=== PATIENT | male | born 1990 | race Caucasian/White ===

== ENCOUNTER 2019-09-30 13:10 | Emergency (ER) | payer BC ==
--- NOTE | 2019-09-30 13:21 | UC ---
Dizzy HPI HPI Summary: 29 yo male presents with dizziness. He tells me that last night he was laying in bed and realized he had to get up to do the laundry before his Zoom date with his girlfriend. He quickly got out of bed from a lying position and immediately felt dizzy described as the "room spinning". He had difficulty doing laundry as he felt everything was moving. He developed nausea and vomiting due to these sensations. Moving makes symptoms worse, but sitting or lying still makes his symptoms better. He went to bed last night and symptoms are mildly improved this morning, but still present. Denies head injury, headache, vision changes, sinus symptoms, ear pain, change in hearing, sore throat, cough, SOB, chest pain, abdominal pain. He has had vertigo in the past, but never this bad or this long. Nothing OTC for symptoms. - History Of Current Complaint Stated Complaint: VERTIGO Time Seen by Provider: 09/30/19 13:20 Hx Obtained From: Patient Onset/Duration: Sudden Onset Timing: Constant Severity Currently: None - Allergies/Home Medications Allergies/Adverse Reactions: Allergies Allergy/AdvReac Type Severity Reaction Status Date / Time No Known Allergies Allergy Verified 09/30/19 13:19 Home Medications: Home Medications Ibuprofen TAB* [Advil TAB*] 200 mg PO Q6H PRN 09/30/19 [History Confirmed ] Meclizine TAB* [Antivert 12.5 TAB*] 25 mg PO TID #21 tab 09/30/19 [Rx] Ondansetron ODT TAB* [Zofran 4 MG Odt TAB*] 4 mg PO Q8H PRN #12 tab.odt [Rx] PMH/Surg Hx/FS Hx/Imm Hx - Additional Past Medical History Additional PMH: None - Surgical History Surgical History: None - Family History Known Family History: Positive: None - Social History Occupation: Employed Full-time Lives: With Family Alcohol Use: Occasionally Substance Use Type: None Smoking Status (MU): Never Smoked Tobacco Review of Systems All Other Systems Reviewed And Are Negative: No Constitutional: Positive: Negative Skin: Positive: Negative Eyes: Positive: Negative ENT: Positive: Negative Neurovascular: Positive: Negative Neurological/Mental Status: Positive: Other - Dizzy Psychological: Positive: Negative Physical Exam - Summary Physical Exam Summary: GENERAL: NAD. WDWN. No pain distress. SKIN: No rashes, sores, ulcers, masses, lesions. HEENT: Head: AT/NC. Eyes: PERRLA. EOM intact. Conjunctiva clear without inflammation or discharge. Ears: Hearing grossly normal. TMs intact, no bulging, erythema, or edema. Nose: Nasal mucosa pink and moist. NTTP maxillary and frontal sinus. Throat: Posterior oropharynx without exudates, erythema, or tonsillar enlargement. Uvula midline. NECK: Supple. Nontender. FROM CHEST: CTAB. No r/r/w. No accessory muscle use. Breathing comfortably and in no distress. CV: RRR. Pulses intact. Brisk cap refill. MSK: FROM in B/L UEs and LEs with symmetric strength. NEURO: A&Ox3. 3 word recall, remote, recent memory, ability to follow 2-step directions, and attention intact. CN: II: Peripheral hu intact. Vision normal. III, IV, : EOMI. MODERATE HORIZONTAL POSITIONAL nystagmus. PERRLA. V: Sensations intact and symmetric. Opens mouth and clenches teeth. VII: No facial asymmetry. Forehead wrinkles. Grins, shuts eyes, frowns, puffs cheeks. VIII: Hearing intact to finger rub. IX, X: Swallows and coughs. Uvula midline. XI: Shrugs shoulders. Turns head against resistance. XII: No tongue deviation Finger-to- nose are intact. Normal speech. No facial drooping. PSYCH: Age appropriate behavior. Triage Information Reviewed: Yes Vital Signs: Vital Signs: Temp Pulse Resp BP Pulse Ox 97.2 F 54 16 121/81 100 09/30/19 13:15 09/30/19 13:15 09/30/19 13:15 09/30/19 13:15 09/30/19 13:15 Vital Signs Reviewed: Yes Dizzy Course/Dx - Course Course Of Treatment: Suspect BPPV. Kasey maneuver performed with little improvement. He was given zofran and meclizine in the clinic for his symptoms. Nausea and vomiting resolved. Vertigo with more mild improvement s/p meclizine. Neuro exam WNL - nystagmus on exam likely due to BPPV. Will rx for zofran and meclizine. - Differential Dx/Diagnosis Differential Diagnosis/HQI/PQRI: CVA, Meniere's Disease, Transient Ischemic Attack Provider Diagnosis: BPPV (benign paroxysmal positional vertigo) Discharge ED - Sign-Out/Discharge Documenting (check all that apply): Patient Departure All imaging exams completed and their final reports reviewed: No Studies - Discharge Plan Condition: Stable Disposition: HOME Prescriptions: Meclizine TAB* [Antivert 12.5 TAB*] 25 mg PO TID #21 tab Ondansetron ODT TAB* [Zofran 4 MG Odt TAB*] 4 mg PO Q8H PRN #12 tab.odt PRN Reason: Nausea Patient Education Materials: Benign Paroxysmal Positional Vertigo (ED) Forms: *Work Release Referrals: Nguyễn Horowitz MD [Primary Care Provider] - Additional Instructions: If you develop a fever, shortness of breath, chest pain, new or worsening symptoms - please call your PCP or go to the ED immediately. If you have no improvement within 2 days - please be rechecked - Billing Disposition and Condition Condition: STABLE Disposition: Home
[2019-09-30] MEDS ORDERED: Ondansetron ODT TAB* 4 MG SL ONE (13:22)
[2019-09-30] MEDS ORDERED: Meclizine TAB* 12.5 MG PO ONE (13:22)
[2019-09-30 13:36] VITALS: BP 121/81
== END 2019-09-30 14:30 | disposition home or self-care (01) ==
LOC: UCEAST 13:10
DX: H81.10 Benign paroxysmal vertigo, unspecified ear (principal)
CPT/HCPCS: 99202; A9270-GY; G0463